=== PATIENT | female | born 1955 | race Caucasian/White ===

== ENCOUNTER → 2017-12-22 | Outpatient (CLI) | payer OTHER ==
[~2017-12-22] MED LIST: ALBU4TAB4 PO; ASPI81TA23 PO; CELE50CA PO; FENT75T TP; FLUO40CA PO; LISI40TA PO; LORA-650 PO; METH500T3 PO; MONT10TA4 PO; PERC5TAB12 PO; TOPA50TA7 PO; TOPI25TA7 PO; VYTO10TA25 PO
--- NOTE | 2017-12-22 12:41 | RADRPT ---
EXAM DATE/TIME: 12/22/2017 11:13 [facility] COMPARISON: No previous studies available for comparison. INDICATIONS : Evaluate for oneumonia, pneumothorax and communicable diseases. Pre-op exploratory lap MEDICAL HISTORY : None. SURGICAL HISTORY : None. ENCOUNTER: Initial ACUITY: 1 day PAIN SCORE: 0/10 LOCATION: chest FINDINGS: PA and lateral views of the chest demonstrate the lungs to be symmetrically aerated without evidence of mass, infiltrate or effusion. The cardiomediastinal contours are unremarkable. Mild S-shaped thoracolumbar curvature noted. CONCLUSION: No evidence of acute cardiopulmonary disease. Van Teixeira MD on December 22, 2017 at 12:38 Board Certified Radiologist. This report was verified electronically.
== END ==
LOC: CPRE 10:06
PROVIDERS: ATTEND Colon & Rectal Surgery
DX: Z01.811 Encounter for preprocedural respiratory examination (principal); Z01.812 Encounter for preprocedural laboratory examination; R19.04 Left lower quadrant abdominal swelling, mass and lump
CPT/HCPCS: 36415; 71046; 86850; 86900; 86901

== ENCOUNTER 2017-12-24 05:05 | Inpatient (IN) | payer OTHER, MEDICARE ==
[~2017-12-24] VITALS: Ht 175.3 cm; Wt 104.5 kg
[2017-12-24] VITALS (13 sets, daily range): BP systolic 115–157; BP diastolic 53–71; PULSE 57–82; RESP 17–19; TEMP 97.6–99.7; O2SAT 95–97
[~2017-12-24 05:05] MED LIST changes: -ASPI81TA23 PO; -PERC5TAB12 PO; -TOPI25TA7 PO
[2017-12-24] MEDS ORDERED: METRONIDAZOLE 500 MG/100 ML ISONTONIC SOLN IV SCH (05:45)
[2017-12-24] MEDS ORDERED: ceFAZolin 1,000 MG/NS 100 ML IV SCH ×2 (05:45)
[2017-12-24] MEDS ORDERED: LACTATED RINGER'S 1000 ML IV PRN (05:45)
[2017-12-24] MEDS ORDERED: CHLORHEXIDINE GLUCONATE 2 % 1 PACK (2 CLOTHS) TOPICAL PRN (05:45)
[2017-12-24] MEDS ORDERED: POVIDONE IODINE 5% (ANTISEPSIS KIT) 4 APPLICATIONS EACH NARE PRN (05:45)
[2017-12-24] MEDS ORDERED: METOPROLOL TARTRATE 25 MG TAB PO PRN (05:45)
[2017-12-24] MEDS ORDERED: SODIUM CHLORID 0.9% 500 ML IV PRN (05:45)
[2017-12-24] MEDS ORDERED: DEXT 5%-NACL 0.9% 1000 ML INJ 1,000 ML IV SCH (05:45)
[2017-12-24] MEDS ORDERED: TOPI25TA7 PO (06:13)
[2017-12-24] MEDS ORDERED: ASPI81TA23 PO (06:14)
--- NOTE | 2017-12-24 06:46 | PD.HP.UP ---
H&P Update Note The Pre-Admit History and Physical Examination regarding the above named patient was reviewed (including, but not limited to, vital signs, heart, lungs, co-morbid conditions), and upon re-examination it is noted that: the patient's condition has not significantly changed since the last examination. Baltazar Bermeo MD Dec 24, 2017 06:46
[2017-12-24] MEDS ORDERED: ACETAMINOPHEN 1000 MG/100 ML 100 ML IV ONE (07:15)
[2017-12-24] MEDS ORDERED: DEXMEDETOMIDINE HCL 200 MCG/2 ML VIAL ONE (07:18)
[2017-12-24] MEDS ORDERED: BUPIVACAINE HCL PF 0.5% 30 ML VIAL ONE (07:25)
[2017-12-24] MEDS ORDERED: KETAMINE HCL 500 MG/10 ML VIAL ONE (07:26)
--- NOTE | 2017-12-24 08:46 | PD.OP ---
Operative Report Date of Surgery: Dec 24, 2017 Preoperative Diagnosis: Pelvic mass Postoperative Diagnosis: Same Procedure: Cystoscopy with bilateral ureteral catheter insertion Anesthesia: LUZ Surgeon: Diego Tomlin Therapist(s): None Resident Surgeon: None Operation and Findings: 62-year-old female with findings of a large pelvic mass. Request were made for placement of bilateral ureteral catheters. The patient was brought to the operating room and placed in this dorsolithotomy position. She was prepped and draped in usual sterile fashion, received preprocedure antibiotics and general endotracheal tube anesthesia was administered. 22 Polish cystoscope was inserted in the bladder. Cystoscopy showed evidence of cystitis. No other abnormalities were identified. The left ureteral orifice was identified a 5 Polish aortic catheter was inserted into the left ureteral orifice with some difficulty. A 0.35 sensor wire was passed through the open-ended catheter to allow passage up into the kidney. The right ureteral orifice was then identified a 5 Polish open ended catheter was inserted and it slid up easily on the right side without difficulty. The Branham was then inserted and attached to the catheters. She tolerated the procedure well. Diego Tomlin DO Dec 24, 2017 08:45
[2017-12-24] MEDS ORDERED: DO NOT ADM ANY ANTICOAGULANT DRUGS PRN (10:15)
[2017-12-24] MEDS ORDERED: MIDAZOLAM HCL 2 MG/2 ML VIAL ONE (10:24)
[2017-12-24] MEDS ORDERED: POTASSIUM CHLOR 20 MEQ PREMIX 100 ML IV PRN (10:30)
[2017-12-24] MEDS ORDERED: BENZOCAINE 6 MG/MENTHOL 10 MG LOZENGE BUCCAL PRN (10:30)
[2017-12-24] MEDS ORDERED: ONDANSETRON HCL 4 MG/2 ML VIAL IV PUSH PRN (10:30)
[2017-12-24] MEDS: METOCLOPRAMIDE HCL 10 MG/2 ML VIAL IVS SCH ×2 (10:30→21:05)
[2017-12-24] MEDS ORDERED: NALOXONE HCL 0.4 MG/ML AMP IV PUSH PRN (10:30)
[2017-12-24] MEDS ORDERED: KETOROLAC TROMETHAMINE 30 MG/ML (IVP) VIAL IVP PRN (10:30)
[2017-12-24] MEDS ORDERED: ACETAMINOPHEN/HYDROcodone 325 MG/5 MG TAB PO PRN ×2 (10:30)
[2017-12-24] MEDS ORDERED: ACETAMINOPHEN 325 MG TAB PO PRN (10:30)
[2017-12-24] MEDS ORDERED: POTASSIUM CHLOR 40 MEQ PREMIX 100 ML IV PRN (10:30)
[2017-12-24] MEDS ORDERED: BUPIVACAINE HCL PF 0.5% 30 ML VIAL NB SCH (10:30)
[2017-12-24] MEDS: D5-NS + KCL 20 MEQ INJ 1,000 ML IV SCH ×3 (10:45→22:38)
[2017-12-24] MEDS: MORPHINE SULFATE 30 MG/30 ML PCA IV SCH (10:59)
[2017-12-24] MEDS ORDERED: Post-op Orders (for Pharmacy) XX ONE (11:00)
[2017-12-24] MEDS ORDERED: LIDOCAINE HCL 1% PF 5 ML SYRINGE OTHER ONE (12:00)
[2017-12-24] MEDS ORDERED: ROCURONIUM INJ 50 MG/5 ML SYRINGE IV PUSH ONE (12:00)
[2017-12-24] MEDS ORDERED: PROPOFOL 200 MG/20 ML AMP IV ONE (12:00)
[2017-12-24] MEDS ORDERED: PHENYLEPH/NS 1000 MCG/10 ML SYR IV ONE (12:00)
[2017-12-24] MEDS ORDERED: ONDANSETRON HCL 4 MG/2 ML VIAL IV PUSH ONE (12:00)
[2017-12-24] MEDS ORDERED: LACTATED RINGER'S 1000 ML INJ 2,000 ML IV ONE (12:00)
[2017-12-24] MEDS ORDERED: GLYCOPYRROLATE 1 MG/5 ML SYRINGE IV PUSH ONE (12:00)
[2017-12-24] MEDS ORDERED: ePHEDrine/NS 25 MG/5 ML SYRINGE IV ONE (12:00)
[2017-12-24] MEDS ORDERED: NEOSTIGMINE 5 MG/5 ML SYRINGE IV PUSH ONE (12:00)
[2017-12-24] MEDS ORDERED: DEXAMETHASONE SOD PHOS 4 MG/ML VIAL IV ONE (12:00)
[2017-12-24] MEDS: PCA - TOTAL MG MORPHINE DELIVERED PER SHIFT SCH ×2 (14:00→21:06)
[2017-12-24] MEDS: metroNIDAZOLE 500 MG INJ 100 ML IV SCH ×2 (16:03→23:26)
[2017-12-25] VITALS (14 sets, daily range): BP systolic 152–184; BP diastolic 60–81; PULSE 59–87; RESP 17–19; TEMP 98.8–100.3; O2SAT 95–97
[2017-12-25] MEDS: D5-NS + KCL 20 MEQ INJ 1,000 ML IV SCH ×3 (04:48→17:15)
[2017-12-25 04:56] LABS: AUTOMATED NEUTROPHIL # 11.2 TH/MM3 (1.8-7.7); BASOPHIL % 0.2 % (0.0-2.0); EOSINOPHIL % 0.1 % (0.0-4.0); HEMATOCRIT 40.7 % (35.0-46.0); HEMOGLOBIN 13.3 GM/DL (11.6-15.3); LYMPH % 13.6 % (9.0-44.0); LYMPHOCYTE # 1.9 TH/MM3 (1.0-4.8); MEAN CELL VOLUME 88.7 FL (80.0-100.0); MEAN CORPUSCULAR HEMOGLOBIN 28.9 PG (27.0-34.0); MEAN CORPUSCULAR HGB CONC 32.6 % (32.0-36.0); MEAN PLATELET VOLUME 7.6 FL (7.0-11.0); MONO % 6.8 % (0.0-8.0); NEUT % 79.3 % (16.0-70.0); PLATELET COUNT 295 TH/MM3 (150-450); RED BLOOD COUNT 4.59 MIL/MM3 (4.00-5.30); RED CELL DISTRIBUTION WIDTH 14.3 % (11.6-17.2); WHITE BLOOD COUNT 14.2 TH/MM3 (4.0-11.0)
[2017-12-25 05:17] LABS: BICARBONATE 24.5 MEQ/L (21.0-32.0); CALCIUM 7.9 MG/DL (8.5-10.1); CREATININE 1.07 MG/DL (0.50-1.00)
[2017-12-25] MEDS: PCA - TOTAL MG MORPHINE DELIVERED PER SHIFT SCH ×3 (06:00→22:00)
[2017-12-25] MEDS ORDERED: PANTOPRAZOLE SODIUM 40 MG VIAL IVP PRN (09:00)
[2017-12-25] MEDS: PANTOPRAZOLE SOD 40 MG DELAYED RELEASE TAB PO SCH (09:00)
[2017-12-25] MEDS: HEPARIN SODIUM - SQ 10,000 UNITS/ML VIAL SQ SCH ×2 (09:08→20:47)
[2017-12-25] MEDS: METOCLOPRAMIDE HCL 10 MG/2 ML VIAL IVS SCH ×2 (09:08→20:47)
[2017-12-25] MEDS: metroNIDAZOLE 500 MG INJ 100 ML IV SCH (09:08)
[2017-12-25] MEDS: fentaNYL 75 MCG/HR PATCH T-DERMAL SCH (11:38)
[2017-12-25] MEDS: REMOVE OLD DURAGESIC (FENTANYL) PATCH T-DERMAL SCH (11:39)
[2017-12-25] MEDS: MORPHINE SULFATE 30 MG/30 ML PCA IV SCH (11:43)
--- NOTE | 2017-12-25 13:05 | HHI.PR ---
Subjective . no new c/o, some pain c/w surgery. no n/v, tolerating oral intake Objective . afeb, vss a&o x 3 abd soft, incision clean & dry, s/s drain output Assessment/Plan . pod #1 doing well in early popst-op period q&a, findings, steps taken, preliminary path reviewed cpm Keyanna Lynch MD Dec 25, 2017 13:05
[2017-12-25] MEDS: LISINOPRIL 20 MG TAB PO SCH (14:42)
[2017-12-25] MEDS: ALVIMOPAN 12 MG CAPSULE PO SCH (20:45)
[2017-12-25] MEDS: ENALAPRILAT 1.25 MG/ML VIAL IV PUSH PRN (20:46)
--- NOTE | 2017-12-25 22:26 | HHI.PR ---
Subjective Remarks C/R Surg POD #1 afebrile, VSS UO good Objective - Vital Signs Date Time Temp Pulse Resp B/P (MAP) Pulse Ox O2 Delivery O2 Flow Rate FiO2 12/25/17 15:13 98.9 61 18 184/81 (115) 95 12/25/17 07:50 21 12/24/17 11:00 Nasal Cannula 2 Result Diagram: 12/25/17 0407 12/25/17 0407 Objective Remarks PE alert Abd - soft, wound dry, no tympany A/P Assessment and Plan Imp: stable post-op OOB start PO Baltazar Bermeo MD Dec 25, 2017 22:26
[2017-12-26] MEDS: D5-NS + KCL 20 MEQ INJ 1,000 ML IV SCH ×2 (02:45→11:31)
[2017-12-26] MEDS: ENALAPRILAT 1.25 MG/ML VIAL IV PUSH PRN (03:28)
[2017-12-26 03:30] VITALS: BP 188/82; PULSE 58; RESP 19; TEMP 98.4; O2SAT 97
[2017-12-26 05:43] LABS: AUTOMATED NEUTROPHIL # 10.9 TH/MM3 (1.8-7.7); BASOPHIL # 0.1 TH/MM3 (0-0.2); BASOPHIL % 0.4 % (0.0-2.0); EOSINOPHIL # 0.1 TH/MM3 (0-0.4); EOSINOPHIL % 0.4 % (0.0-4.0); HEMATOCRIT 37.1 % (35.0-46.0); HEMOGLOBIN 12.3 GM/DL (11.6-15.3); LYMPH % 12.1 % (9.0-44.0); LYMPHOCYTE # 1.6 TH/MM3 (1.0-4.8); MEAN CELL VOLUME 87.7 FL (80.0-100.0); MEAN CORPUSCULAR HEMOGLOBIN 29.1 PG (27.0-34.0); MEAN CORPUSCULAR HGB CONC 33.2 % (32.0-36.0); MEAN PLATELET VOLUME 7.4 FL (7.0-11.0); MONO % 5.5 % (0.0-8.0); MONOCYTE # 0.7 TH/MM3 (0-0.9); NEUT % 81.6 % (16.0-70.0); PLATELET COUNT 250 TH/MM3 (150-450); RED BLOOD COUNT 4.23 MIL/MM3 (4.00-5.30); RED CELL DISTRIBUTION WIDTH 14.2 % (11.6-17.2); WHITE BLOOD COUNT 13.3 TH/MM3 (4.0-11.0)
[2017-12-26] MEDS: PCA - TOTAL MG MORPHINE DELIVERED PER SHIFT SCH ×3 (06:00→22:00)
[2017-12-26 06:02] LABS: BICARBONATE 23.7 MEQ/L (21.0-32.0); CALCIUM 8.3 MG/DL (8.5-10.1); CREATININE 0.95 MG/DL (0.50-1.00)
[2017-12-26 08:00] VITALS: BP 190/85; PULSE 60; RESP 18; TEMP 100.3; O2SAT 94
[2017-12-26] MEDS: METOCLOPRAMIDE HCL 10 MG/2 ML VIAL IVS SCH ×2 (08:23→20:18)
[2017-12-26] MEDS: HEPARIN SODIUM - SQ 10,000 UNITS/ML VIAL SQ SCH ×2 (08:27→20:19)
[2017-12-26] MEDS: LISINOPRIL 20 MG TAB PO SCH (08:27)
[2017-12-26] MEDS: PANTOPRAZOLE SOD 40 MG DELAYED RELEASE TAB PO SCH (08:27)
[2017-12-26] MEDS: ALVIMOPAN 12 MG CAPSULE PO SCH ×2 (08:27→20:18)
[2017-12-26] MEDS: ENALAPRILAT 2.5 MG/2 ML VIAL IV PUSH PRN ×4 (10:26→20:31)
[2017-12-26 11:30] VITALS: BP 183/86; PULSE 84; RESP 20; TEMP 98.8; O2SAT 93
[2017-12-26] MEDS: FUROSEMIDE 20 MG/2 ML VIAL IV PUSH SCH (14:26)
[2017-12-26 15:30] VITALS: BP 197/83; PULSE 72; RESP 20; TEMP 98.7; O2SAT 96
--- NOTE | 2017-12-26 17:09 | HHI.PR ---
Subjective . c/o headache no n/v, otherwise adequate pain control Objective . Tmax 100.3, now afebrile, 58-64, 168-188/68-82, 18-19, 95% i/o 2045/2400, mary drain 225 h/h 12.3/37.1, bun/creat 6/0.95 a&o x 3, nad lungs cta with basilar rales, cv rrr abd clean, dry, s/s drain output Assessment/Plan . pod#2 doing well in post-op recovery headache, BP elevation, lasix & pain medication ordered low grade temp c/w atelectasis, increase spirometry, oob activity q&a, path pending, [facility] Keyanna Lynch MD Dec 26, 2017 17:08
[2017-12-26 19:30] VITALS: BP 194/88; PULSE 66; RESP 21; TEMP 98.9; O2SAT 95
[2017-12-26] MEDS: MORPHINE SULFATE 30 MG/30 ML PCA IV SCH (20:53)
[2017-12-26] MEDS ORDERED: TEMAZEPAM 15 MG CAP PO PRN (22:45)
[2017-12-26 23:00] VITALS: BP 185/79; PULSE 69; RESP 20; TEMP 98.7; O2SAT 94
[2017-12-26] MEDS: hydrALAZINE HCL 20 MG/ML VIAL IV PUSH PRN (23:00)
[2017-12-27 03:10] VITALS: BP 187/82; PULSE 80; RESP 20; TEMP 98.5; O2SAT 96
[2017-12-27] MEDS: FUROSEMIDE 20 MG/2 ML VIAL IV PUSH SCH (04:15)
[2017-12-27] MEDS: hydrALAZINE HCL 20 MG/ML VIAL IV PUSH PRN (04:21)
[2017-12-27] MEDS: PCA - TOTAL MG MORPHINE DELIVERED PER SHIFT SCH (06:00)
[2017-12-27 07:00] VITALS: BP 169/83; PULSE 74; RESP 18; TEMP 98.9; O2SAT 96
[2017-12-27] MEDS: PANTOPRAZOLE SOD 40 MG DELAYED RELEASE TAB PO SCH (08:34)
[2017-12-27] MEDS: HEPARIN SODIUM - SQ 10,000 UNITS/ML VIAL SQ SCH (08:35)
[2017-12-27] MEDS: LISINOPRIL 20 MG TAB PO SCH (08:35)
[2017-12-27] MEDS: ALVIMOPAN 12 MG CAPSULE PO SCH (08:35)
[2017-12-27] MEDS: METOCLOPRAMIDE HCL 10 MG/2 ML VIAL IVS SCH (08:36)
[2017-12-27] MEDS: fentaNYL 75 MCG/HR PATCH T-DERMAL SCH (09:54)
[2017-12-27] MEDS: REMOVE OLD DURAGESIC (FENTANYL) PATCH T-DERMAL SCH (09:55)
[2017-12-27] MEDS ORDERED: PERC5TAB12 PO (10:00)
--- NOTE | 2017-12-27 10:07 | HHI.FF ---
Face to Face Verification Diagnosis: (1) Endometrial adenocarcinoma Physical Therapy Order: Evaluate and Treat, Improve ambulation, Strength and gait training Home Health Nursing Order: Medical education Signs/symptoms of disease process Wound care and dressing changes I have seen patient Gabbie Bowers on 12/27/17. My clinical findings support the need for the requested home health care services because: Ltd mobility - disease progression Deconditioned w/ increased weakness Infection w/ risk of complications I certify that my clinical findings support that this patient is homebound because: Post-op weakness Unsafe to leave home unassisted Baltazar Bermeo MD Dec 27, 2017 10:07
--- NOTE | 2017-12-27 10:52 | HHI.PR ---
Subjective Remarks C/R Surg POD #3 afebrile, VSS UO good +stool Objective - Vital Signs Date Time Temp Pulse Resp B/P (MAP) Pulse Ox O2 Delivery O2 Flow Rate FiO2 12/27/17 06:00 19 12/27/17 03:10 98.5 80 187/82 (117) 96 12/25/17 21:20 21 12/24/17 11:00 Nasal Cannula 2 Result Diagram: 12/26/17 0520 12/26/17 0520 Objective Remarks PE alert Abd - soft, wound dry, no tympany, drain mod A/P Assessment and Plan Imp: OOB start PO, adv DC IVF dc plans path reviewed Baltazar Bermeo MD Dec 27, 2017 10:52
[2017-12-27 11:00] VITALS: BP 160/78; PULSE 78; RESP 18; TEMP 98.4; O2SAT 97
[2017-12-27] MEDS ORDERED: METOCLOPRAMIDE HCL 10 MG/2 ML VIAL IVS PRN (11:00)
[2017-12-27] MEDS ORDERED: FLUoxetine HCL 20 MG CAP PO ONE (13:00)
--- NOTE | 2017-12-31 12:08 | MP ---
cc: Baltazar Bermeo MD,Keyanna Hollins MD DATE OF OPERATION: 12/24/2017 DATE OF PROCEDURE: 12/24/2017 PREOPERATIVE DIAGNOSES: 1. Pelvic mass. 2. History of endometriosis. PROCEDURE: 1. Exploratory laparotomy with excision of large retroperitoneal mass. 2. Sigmoidoscopy. POSTOPERATIVE DIAGNOSES: 1. Large retroperitoneal cystic mass. 2. History of endometriosis. SURGEON: Dr. Bermeo. CAR HOPPER: Dr. Keyanna Lynch PROCEDURE: The patient was placed in the supine position. After adequate general anesthesia, her legs were placed in universal stirrups and supported appropriately. The abdomen and perineum were then prepped with Betadine solution, draped in the usual sterile fashion. With Dr. Lynch' assistance, the abdomen was opened through a midline incision. Exploration revealed a very large cystic mass underneath the sigmoid mesentery displacing the sigmoid colon anteriorly and over to the right side. The mass did appear to be mostly retroperitoneal. The uterus and ovaries had been previously removed. The sigmoid colon, other than being stretched over the mass, appeared to be relatively normal. The proximal colon was palpated and felt to be pretty unremarkable. The small bowel was run from ligament of Treitz down to the ileocecal valve and no abnormalities were noted. The liver was normal. The stomach and duodenum were unremarkable. The great vessels were of normal caliber and fairly soft. First, the sigmoid colon was mobilized medially by dividing along the white line of Toldt. The left ureteral stent was eventually palpated and the ureter preserved along its entire course as was the right ureter. Dissection then proceeded up to the left gutter, freeing the left colon off the retroperitoneum. The cecum was elevated up out of the pelvis and the right retroperitoneal space opened. After reflecting the sigmoid off the mass, the tedious dissection was undertaken to free the mass anteriorly and then to the retroperitoneum, taking the ureter off the mass as well as the remaining remnant ovarian vessels. The mass was fairly tightly adherent to the iliac vessels and these attachments were also sharply divided. As the dissection proceeded down into the pelvis, the presacral space was opened and the rectum mobilized up out of the pelvis. The mass appeared to have more attachments to the cul-de-sac area and a plane was developed between the rectum and the cul-de-sac eventually dividing the attachments in the cul-de-sac region with a sponge stick in the vagina for identification of the vaginal apex. After complete excision of the mass was sent off and pathological evaluation revealed serous neoplasm borderline tumor. The abdomen was irrigated copiously. Hemostasis achieved at all sites. Dr. Lynch inserted the sigmoidoscope and insufflation confirmed no leaks in the sigmoid colon. The mesentery of the sigmoid colon had not been taken and the bowel did appear viable. There was somewhat of a redundant sigmoid loop. A Andrey-Benites drain was placed down into the presacral space and brought up through a stab wound in the right lower quadrant, secured to the skin with a nylon suture. The omentum was evaluated and felt to be pretty unremarkable. No significant adenopathy was noted in the retroperitoneum. The midline incision was then closed anatomically using a running #1 PDS suture to reapproximate the midline fascia. The subcutaneous tissues were irrigated copiously and the skin closed with a running subcuticular Vicryl suture. The wound area was washed with normal saline and dried, sterile dressing of Telfa and gauze applied. The patient tolerated the procedure quite well and was brought to the recovery room in stable condition. Sponge and needle counts were correct at the end of the procedure. MD RAHEEM Herrera/SB , 11:34 AM , 12:07 PM
--- NOTE | 2018-01-02 08:33 | MP ---
cc: Keyanna Lynch MD,Baltazar Beck MD DATE OF OPERATION: 12/24/2017 PREOPERATIVE DIAGNOSIS: 1. Pelvic mass. 2. History of endometriosis. 3. Status post prior hysterectomy, bilateral salpingo-oophorectomy. POSTOPERATIVE DIAGNOSIS: 1. Pelvic mass. 2. History of endometriosis. 3. Status post prior hysterectomy, bilateral salpingo-oophorectomy. PROCEDURE PERFORMED: 1. Exploratory laparotomy with excision of large retroperitoneal mass. 2. Sigmoidoscopy. ANESTHESIA: Baltazar Bermeo MD. R PROGRAMMER: Keyanna Lynch MD. HISTORY: This is a 62-year-old female who, by history, had severe endometriosis, had a hysterectomy and bilateral salpingo-oophorectomy; however, was found on exam and imaging to have a large pelvic mass fixed in position that had been causing symptoms and increasing in size. She was counseled regarding recommendations for surgical removal. She was seen and evaluated initially by Dr. Baltazar Bermeo. Dr. Bermeo asked me to see her in consultation. She was seen in our office where she was further counseled and she agreed to move forward with surgery and the surgical schedule was coordinated between Dr. Bermeo and myself. Given the extensive overlying bowel component and compression on the bowel, the surgery was directed by Dr. Baltazar Bermeo. I acted as a administrative assistant front desk as there are no resident physicians available, but I had Dr. Baltazar Bermeo direct this surgery. I was scrubbed from start to finish on this procedure. The steps taken and the findings are as outlined and summarized in the op note by Dr. Bermeo. Please see his surgical note for details. I stayed scrubbed from the beginning of the case until after the fascia was closed. Keyanna Lynch MD KLM/KIA , 08:13 AM , 08:31 AM
--- NOTE | 2018-01-06 16:02 | PQ ---
Physician Query Response Document PATIENT: MARVA MORENO : 1955 ADMIT DATE: 12/24/2017 5:05 AM DISCH DATE: 12/27/2017 2:20 PM RESPONDING PROVIDER #: AHRitter QUERY TEXT: Clarification of Clinical Diagnostic Findings Please clarify documentation or clinical relevance for the clinical / diagnostic findings or whether those are insignificant or unable to be further specified. ___Serous Carcinoma Retroperitoneum ___Retroperitoneal Mass ___Undetermined ___Unknown ___Other The patient's Clinical Indicators include: Patient admitted with pelvic mass. Pathology report shows: RG/guanako FINAL DIAGNOSIS: #1- PELVIC MASS, EXCISIONAL BIOPSY: - SEROUS BORDERLINE TUMOR (SEE COMMENT). #2- RETROPERITONEAL MASS, RESECTION: - SEROUS CARCINOMA ARISING IN THE BACKGROUND OF SEROUS BORDERLINE TUMOR AND ASSOCIATED ENDOMETRIOSIS. - SEE COMMENT AND TUMOR SUMMARY. Please call ext. [phone] if any questions, coments or concerns. Query created by: Marcelina Gregorio on 01/01/2018 8:14 AM RESPONSE TEXT: Provider disagreed with this CDI query. Electronically signed by: Baltazar Bermeo MD 01/06/2018 3:58 PM
== END 2017-12-27 14:20 | disposition home health service (06) | DRG 357 ==
LOC: HSDI 05:05 → EDSTATUS 07:30 → HCPC 11:13
PROVIDERS: ADMIT Colon & Rectal Surgery; ATTEND Colon & Rectal Surgery
PROC: 0T788DZ Dilation of Bilateral Ureters with Intraluminal Device, Via Natural or Artificial Opening Endoscopic (ICD-10-PCS; 2017-12-24)
PROC: 0WBH0ZZ Excision of Retroperitoneum, Open Approach (ICD-10-PCS; principal; 2017-12-24 07:34)
PROC: 0DJD8ZZ Inspection of Lower Intestinal Tract, Via Natural or Artificial Opening Endoscopic (ICD-10-PCS; 2017-12-24 07:34)
DX: R19.04 Left lower quadrant abdominal swelling, mass and lump (principal); J98.11 Atelectasis; N30.90 Cystitis, unspecified without hematuria; I10 Essential (primary) hypertension; J45.909 Unspecified asthma, uncomplicated; E11.9 Type 2 diabetes mellitus without complications; G47.30 Sleep apnea, unspecified; R51 Headache; Z96.653 Presence of artificial knee joint, bilateral; Z79.84 Long term (current) use of oral hypoglycemic drugs; Z79.82 Long term (current) use of aspirin; Z85.820 Personal history of malignant melanoma of skin; Z90.710 Acquired absence of both cervix and uterus
CPT/HCPCS: 36415; 71046; 76937; 80048; 85025; 86850; 86900; 86901; 88305; 88331; 88341; 88342; 94150; C1769; C9113; J0131; J0360; J0690; J1100; J1644; J1885; J1940; J2250; J2270; J2370; J2405; J2710; J2765; J3480; J7120

== ENCOUNTER 2018-01-30 06:14 | Day surgery (SDC) | payer OTHER ==
[~2018-01-30] VITALS: Ht 175.3 cm; Wt 95.9 kg
[~2018-01-30 06:14] MED LIST changes: +ASPI81TA23 PO; +PERC5TAB12 PO; -TOPA50TA7 PO; +TOPI25TA7 PO
[2018-01-30] MEDS ORDERED: CHLORHEXIDINE GLUCONATE 2 % 1 PACK (2 CLOTHS) TOPICAL SCH (07:30)
[2018-01-30] MEDS ORDERED: SODIUM CHLORIDE 0.9% 1000 ML IV SCH (07:30)
[2018-01-30] MEDS ORDERED: POVIDONE IODINE 5% (ANTISEPSIS KIT) 4 APPLICATIONS EACH NARE SCH (07:30)
[2018-01-30 07:31] VITALS: BP 144/79; PULSE 55; RESP 19; TEMP 99; O2SAT 96
[2018-01-30] MEDS ORDERED: EZET10 PO (07:41)
[2018-01-30 07:52] LABS: PROTHROMBIN TIME - PATIENT 10.3 SEC (9.8-11.6)
[2018-01-30] MEDS ORDERED: MIDAZOLAM HCL 5 MG/5 ML VIAL ONE (08:00)
[2018-01-30] MEDS ORDERED: fentaNYL CITRATE 250 MCG/5 ML AMP ONE (08:00)
[2018-01-30] MEDS: VANCOMYCIN 1000 MG/NS 250 ML - implanted port/tunneled catheter IV SCH ×4 (08:11→10:36)
[2018-01-30] MEDS: ceFAZolin 2 GM PREMIX 50 ML - implanted port/tunneled catheter insertion IV SCH ×2 (08:11→10:36)
[2018-01-30] MEDS ORDERED: LIDOCAINE 1%/EPINEPHrine 1:100,000 SOLN 20 ML VIAL ONE (08:13)
[2018-01-30] MEDS ORDERED: HYDROmorphone HCL PF 2 MG/ML VIAL ONE (08:34)
--- NOTE | 2018-01-30 09:09 | PD.RAD ---
Post Procedure Progress Note Pre Procedure Diagnosis: (1) Endometrial adenocarcinoma Post Procedure Diagnosis: (1) Endometrial adenocarcinoma Procedure Date: January 30, 2018 Supervising Radiologist: Jonny Duke Proceduralist/Assist: Petra Diane, RT(R)(CV), Howie Wheeler RT(R) Anesthesia: Local, Analgesia, Conscious Sedation Plan of Activity Patient to Unit: ROPU Patient Condition: Good See PACS Report for procedural detail/treatment Central Venous Access Device Procedure 1 Right Internal Jugular Infusaport Placement single lumen Amharic: 8 Jonny Duke MD January 30, 2018 09:09
[2018-01-30 09:15] VITALS: BP 155/79; PULSE 57; RESP 18; TEMP 97.5; O2SAT 99
[2018-01-30] MEDS ORDERED: SODIUM CHLORIDE 0.9% FLUSH 10 ML FLUSH IVF PRN (09:15)
[2018-01-30 09:30] VITALS: BP 160/70; PULSE 58; RESP 19; O2SAT 97
[2018-01-30 10:00] VITALS: BP 150/81; PULSE 57; RESP 18; O2SAT 95
[2018-01-30 10:30] VITALS: BP 157/83; PULSE 59; RESP 20; O2SAT 98
--- NOTE | 2018-01-30 13:50 | RADRPT ---
EXAM DATE/TIME: 01/30/2018 07:58 [facility] COMPARISON: No previous studies available for comparison. INDICATIONS : Patient with endometrial cancer. needs port for chemotherapy. MEDICAL HISTORY : 1. pad 2. HYPERCHOLESTEROLEMIA 3. htn 4. Asthma 5. melanoma SURGICAL HISTORY : 1. bilateral knee replacment 2.tonsillectomy 3. cholecystectomy 4. hysterectomy ENCOUNTER: Initial ACUITY: 1 month PAIN SCORE: 0/10 FLUORO TIME: 1.2 minutes IMAGE SERIES: 1 SEDATION TIME: 45 minutes ACCESS: Right internal jugular vein SEDATION: 1.) 5 mg midazolam (Versed) IV 2.) 2 mg hydromorphone (Dilaudid) IV 3.) 250mcg fentanyl (Sublimaze) IV Prophylactic antibiotics were administered with appropriate pre-procedure timing. Vancomycin within 2 hours of procedure, Ancef (or alternative) within 1 hour of procedure. DEVICE: 1. 8 Dominican single lumen XCELA PLUS PORT PROCEDURE : 1. Continuous pulse oximetry and EKG monitoring. 2. Intravenous conscious sedation. 3. Ultrasound guidance for venous access. 4. Fluoroscopic guided implantable central venous port placement. The patient was placed supine. The neck was prepped in sterile fashion. Full sterile technique was u sed, including cap, mask, sterile gloves and gown, and a large sterile sheet. Hand hygiene and 2% ch lorhexidine Betadine was utilized per protocol for cutaneous antisepsis with appropriate dry time for site. Sterile gel and sterile probe cover were utilized for ultrasound guidance. The skin and sub cutaneous tissues were infiltrated with local anesthetic solution. Under direct ultrasound guidance, central venous access was accomplished in the targeted vessel. The ultrasound images depicting access guidance were stored and saved to PACS for permanent record. A s ubcutaneous pocket was created using blunt dissection. The port was introduced to the pocket. The c atheter tubing was fed through a subcutaneous tunnel to the venotomy site. The catheter tubing was c ut to a suitable length and then was introduced through a valved Peel-Away sheath and positioned with catheter tubing tip at the cavo-atrial junction level. The pocket incision was closed with subcutic ular Vicryl suture. Steri-Strips were applied. The port was flushed and locked with heparin solutio n per protocol. Sterile dressing was applied to the site. The patient tolerated the procedure well. Conscious sedation was performed with the prescribed dosages and duration as above in the presence of an independent trained radiology nurse to assist in the monitoring of the patient. EKG and oximetry remained stable throughout the procedure. The patient tolerated the procedure well and there were no complications. The patient was sent to post anesthesia recovery in stable condition. CONCLUSION: Uncomplicated ultrasound and fluoroscopic guided implanted central venous port catheter placement as described in detail above. An 8 Dominican Power port was placed. Jonny Duke MD on January 30, 2018 at 13:47 Board Certified Radiologist. This report was verified electronically.
== END 2018-01-30 11:02 | disposition home or self-care (01) ==
LOC: HROP 06:14 → HRIP 06:15 → HROP 11:02
PROVIDERS: ATTEND Obstetrics & Gynecology Gynecologic Oncology
DX: Z45.2 Encounter for adjustment and management of vascular access device (principal); C54.1 Malignant neoplasm of endometrium; I10 Essential (primary) hypertension; I73.9 Peripheral vascular disease, unspecified; E78.00 Pure hypercholesterolemia, unspecified; J45.909 Unspecified asthma, uncomplicated; Z85.820 Personal history of malignant melanoma of skin; Z90.710 Acquired absence of both cervix and uterus; Z90.49 Acquired absence of other specified parts of digestive tract
CPT/HCPCS: 36561; 76937; 77001; 85610; 99152; 99153; C1788; J0690; J1170; J1642; J2250; J3010; J3370; J7030; J7050

== ENCOUNTER 2018-04-10 14:16 | Inpatient (IN) ==
[2018-04-10] MEDS ORDERED: Sod Chloride 0.9% Inj 1,000 ML IV.SIG ONE (14:49)
--- NOTE | 2018-04-10 14:56 | ED ---
HPI General Chief complaint: Extremity Problem,Nontraumatic Stated complaint: Edema Time Seen by Provider: 04/10/18 14:30 Source: patient Mode of arrival: ambulatory Limitations: no limitations History of Present Illness HPI narrative: 63-year-old female with a history of ovarian cancer presents emergency department complaining of right lower extremity swelling and pain with exertion that started 2 days ago. Says she that she also has had associated increased shortness of breath with exertion since the onset of her pain in her right lower extremity. Patient points to the anterior thigh of the right lower extremity as to where the most of her pain is. Says currently she has no pain unless walking. Says the pain is mild to moderate, nonradiating and sharp and dull in nature. Says she was advised to come to the emergency department by primary care physician to rule out DVT. Patient states that she has been on been on Neulasta for 2 weeks. She has had shortness of breath for the last several weeks but again, the SOB is worse over the last 2 days. The shortness of breath resolves within 2-3 minutes of rest. She denies fevers or chills. Denies chest pain, abdominal pain. She denies inciting event such as trauma to the lower extremities. Relieving factors: rest Exacerbating factors: movement Associated symptoms: shortness of breath Treatments prior to arrival: none Related Data Home Medications Medication Instructions Recorded Confirmed celecoxib [Celebrex] 200 mg PO DAILY 04/10/18 04/10/18 fentanyl 1 patch TRANSDERMAL Q72H 04/10/18 04/10/18 fluoxetine 40 mg PO DAILY 04/10/18 04/10/18 lisinopril 40 mg PO DAILY 04/10/18 04/10/18 loratadine 10 mg PO DAILY 04/10/18 04/10/18 montelukast 10 mg PO QPM 04/10/18 04/10/18 ondansetron HCl 4 mg PO DAILY PRN 04/10/18 04/10/18 topiramate [Topamax] 15 mg PO DAILY 04/10/18 04/10/18 Allergies Allergy/AdvReac Type Severity Reaction Status Date / Time Sulfa (Sulfonamide Allergy Severe Swelling Verified 04/10/18 14:22 Antibiotics) Review of Systems Except as stated in HPI: all other systems reviewed are negative [facility] Medical History Medical History Anxiety (Acute) Asthma (Acute) Endometrial cancer (Acute) HBP (high blood pressure) (Acute) History of hysterectomy (Acute) Melanoma (Acute) Surgical History Surgical History History of back surgery (Acute) History of knee replacement (Acute) Hx of cholecystectomy (Acute) Hx of tonsillectomy (Acute) Social History Social History Substance History: No History of Abuse Second Hand Smoke Exposure: No Smoking Status: Never smoker How Often Do You Have a Drink Containing Alcohol: Monthly or less Recent Travel in [facility] within the Last 8 Weeks: No Immunization History Tetanus Immunization: >5 Years Hx Influenza Vaccine This Season: Yes Exam Narrative Exam Narrative: GENERAL: Well developed, well-nourished in no apparent distress , resting comfortably in bed SKIN: Focused skin assessment warm/dry. HEAD: Atraumatic. Normocephalic. EYES: Pupils equal and round. No scleral icterus. No injection or drainage. ENT: No nasal bleeding or discharge. Mucous membranes pink and moist. NECK: Trachea midline. No JVD. No lymphadenopathy CARDIOVASCULAR: Regular rate and rhythm. No murmur appreciated. RESPIRATORY: No accessory muscle use. Clear to auscultation. Breath sounds equal bilaterally. GASTROINTESTINAL: Abdomen soft, non-tender, nondistended. Hepatic and splenic margins not palpable. MUSCULOSKELETAL: No obvious deformities. No clubbing. No cyanosis. Right lower extremity from proximal knee to foot with erythema, skin intact, tenderness palpation. Bilateral lower extremities status post TKA NEUROLOGICAL: Awake and alert. No obvious cranial nerve deficits. Motor grossly within normal limits. Normal speech. PSYCHIATRIC: Appropriate mood and affect; insight and judgment normal. Course Initial Documented Vital Signs Temperature 98.1 F 04/10/18 14:28 Pulse Rate 93 H 04/10/18 14:28 Respiratory Rate 16 04/10/18 14:28 Blood Pressure 106/61 04/10/18 14:28 Pulse Oximetry 98 04/10/18 14:28 Last Documented Vital Signs Temperature 97.9 F 04/10/18 19:00 Pulse Rate 81 04/10/18 19:00 Respiratory Rate 18 04/10/18 19:00 Blood Pressure 102/65 04/10/18 19:00 Pulse Oximetry 98 04/10/18 18:00 Medical Decision Making MICHAEL Attestation MICHAEL supervised visit: Yes Attestation: I, Dr. Sanders, have reviewed the advance practice practitioner's documentation and am in agreement, met with the patient face to face, made the diagnosis, and the medical decision making was done by me. *My assessment and Findings: Patient presents with right leg swelling and pain. Patient has difficulty ambulating. Patient also is feeling weak. Patient does have a history of cancer. Ultrasound of the lower extremities shows evidence of a DVT. She is also with elevated BUN and creatinine. She will be admitted to the hospital. She will be given IV hydration. MDM Narrative Medical decision making narrative: 63y female presents with right lower extremity swelling, erythema and pain. She has a history of adenocarcinoma and was treated by Dr. Lynch and Dr. Bermeo. Patient is currently receiving chemo. She called her nurse today and recommended she come in to the emergency department for evaluation. PMHx: Anxiety Asthma DM II HTN Peripheral neuropathy s/p Hysterectomy 17yrs ago After review the EMR, it appears that patient was evaluated by Dr. Lynch April 03. She was diagnosed with "adenocarcinoma arising from possible ovarian remnant versus endometriosis" and had surgery for excision (12/24/2017) with follow up chemotherapy. I had an extensive discussion of Coumadin versus Xarelto therapy for her DVT. She states that she would like to be in the hospital as she gets blood work done every week by her oncologist. That this would not be a burden. She says that she would have also had trouble performing her ADLs at home because of the pain with walking. I had like to admit this patient for an extensive DVT, acute kidney injury, and hypotension. I discussed this case with Dr. Stringer who agreed to the admission. Differential Diagnosis Differential Diagnosis: PE, DVT, dehydration Lab Data Result diagrams: 04/10/18 14:45 04/10/18 14:45 Lab Results 04/10/18 04/10/18 04/10/18 Range/Units 14:45 14:45 14:45 WBC 18.7 H (4.0-11.0) th/mm3 RBC 4.31 (4.00-5.30) mil/mm3 Hgb 12.6 (11.6-15.3) gm/dL Hct 38.9 (35.0-46.0) % MCV 90.2 (80.0-100.0) fL MCH 29.2 (27.0-34.0) pg MCHC 32.4 (32.0-36.0) % RDW 20.8 H (11.6-17.2) % Plt Count 104 L (150-450) th/mm3 MPV 8.1 (7.0-11.0) fL Neut % (Auto) 88.9 H (16.0-70.0) % Lymph % (Auto) 7.1 L (9.0-44.0) % Alexander % (Auto) 3.8 (0.0-8.0) % Eos % (Auto) 0.1 (0.0-4.0) % Baso % (Auto) 0.1 (0.0-2.0) % Neut # (Auto) 16.6 H (1.8-7.7) th/mm3 Lymph # (Auto) 1.3 (1.0-4.8) th/mm3 Alexander # (Auto) 0.7 (0.0-0.9) th/mm3 Eos # (Auto) 0.0 (0.0-0.4) th/mm3 Baso # (Auto) 0.0 (0.0-0.2) th/mm3 WBC Differential . Differential Comment Auto diff final PT 10.4 (9.8-11.6) sec INR 1.0 Ratio APTT 22.5 L (24.3-30.1) sec Sodium 139 (136-145) meq/L Potassium 4.3 (3.5-5.1) meq/L Chloride 107 (98-107) meq/L Carbon Dioxide 22.1 (21.0-32.0) meq/L Anion Gap 10 (5-15) meq/L BUN 22 H (7-18) mg/dL Creatinine 1.38 H (0.50-1.00) mg/dL Estimated GFR 38 L (>89) mL/min Random Glucose 109 H (74-106) mg/dL Calcium 9.1 (8.5-10.1) mg/dL Total Bilirubin 0.3 (0.2-1.0) mg/dL AST 8 L (15-37) U/L ALT 17 (10-53) U/L Alkaline Phosphatase 110 (45-117) U/L Total Protein 7.2 (6.4-8.2) g/dL Albumin 3.9 (3.4-5.0) g/dL Imaging Data Radiologist's impression: Chest X-Ray 04/10/18 14:49 CONCLUSION: No acute cardiopulmonary abnormality is identified. Venous Doppler Study 04/10/18 15:20 CONCLUSION: 1. Extensive DVT. Chest CTA 04/10/18 15:56 CONCLUSION: Unremarkable study except for mild scoliosis . Discharge Plan Discharge Disposition Patient Disposition: 30 Still Patient Discharge Condition Condition: Stable Discharge Details Diagnosis: KRISTY (acute kidney injury), Hypotension, DVT (deep venous thrombosis) Physicians Team ED Provider: Laith Sanders ED Midlevel Provider: Babs Boss Primary Care Provider: Nathan Sabillon Attending Provider: Grisel Hawley Status ED Status: Admitted Patient
[2018-04-10 15:15] LABS: Baso % (Auto) 0.1 % (0.0-2.0); Eos % (Auto) 0.1 % (0.0-4.0); Hematocrit 38.9 % (35.0-46.0); Hemoglobin 12.6 gm/dL (11.6-15.3); Lymph # (Auto) 1.3 th/mm3 (1.0-4.8); Lymph % (Auto) 7.1 % (9.0-44.0); Mean Corpuscular HGB Conc 32.4 % (32.0-36.0); Mean Corpuscular Hemoglobin 29.2 pg (27.0-34.0); Mean Corpuscular Volume 90.2 fL (80.0-100.0); Mean Platelet Volume 8.1 fL (7.0-11.0); Mono # (Auto) 0.7 th/mm3 (0.0-0.9); Mono % (Auto) 3.8 % (0.0-8.0); Neut # (Auto) 16.6 th/mm3 (1.8-7.7); Neut % (Auto) 88.9 % (16.0-70.0); Platelet Count 104 th/mm3 (150-450); Red Blood Count 4.31 mil/mm3 (4.00-5.30); Red Cell Distribution Width 20.8 % (11.6-17.2); White Blood Count 18.7 th/mm3 (4.0-11.0)
[2018-04-10 15:24] LABS: Activated Partial Thrombo Time 22.5 sec (24.3-30.1); Prothrombin Time 10.4 sec (9.8-11.6)
--- NOTE | 2018-04-10 15:30 | XR ---
EXAM DATE: 04/10/2018 3:03 PM EDT AGE/SEX: 63 years / Female INDICATIONS: Short of breath. Edema. CLINICAL DATA: This is the patient's initial encounter. Patient reports that signs and symptoms have been present for 1 day and indicates a pain score of 2/10. MEDICAL/SURGICAL HISTORY: . endometriosis carcinoma . Infusa-port COMPAR[place]: [facility] [place], 12[place]22[place]. . FINDINGS: Portable AP view of the chest demonstrates a normal-sized cardiac silhouette. Right chest wall Infuse -a-Port is present with distal tip in the superior vena cava. No pleural effusion, airspace consolida tion, or pneumothorax is identified. Bones and soft tissues demonstrate no acute finding. CONCLUSION: No acute cardiopulmonary abnormality is identified. Electronically signed by: Van Quarles MD 04/10/2018 3:29 PM EDT
[2018-04-10 15:36] LABS: Alanine Aminotransferase 17 U/L (10-53); Albumin 3.9 g/dL (3.4-5.0); Anion Gap 10 meq/L (5-15); Aspartate Aminotransferase 8 U/L (15-37); Blood Urea Nitrogen 22 mg/dL (7-18); Calcium 9.1 mg/dL (8.5-10.1); Carbon Dioxide 22.1 meq/L (21.0-32.0); Chloride 107 meq/L (98-107); Glomerular Filtration Rate 38 mL/min (>89); Glucose,Random 109 mg/dL (74-106); Potassium 4.3 meq/L (3.5-5.1); Sodium 139 meq/L (136-145)
[2018-04-10 15:39] LABS: Alkaline Phosphatase 110 U/L (45-117); Total Protein 7.2 g/dL (6.4-8.2)
--- NOTE | 2018-04-10 15:47 | US ---
EXAM DATE: 04/10/2018 3:41 PM EDT AGE/SEX: 63 years / Female INDICATIONS: Right leg swelling. CLINICAL DATA: This is the patient's initial encounter. Patient reports that signs and symptoms have been present for 1 week and indicates a pain score of 3/10. MEDICAL/SURGICAL HISTORY: . Anxiety. Asthma. Endometrial cancer. High blood pressure. Melanoma. Hysterectomy. Cholecystectomy. Tonsillectomy. Back surgery. Knee replacement. COMPARISON: No prior exams available for comparison. TECHNIQUE: Venous ultrasound of both lower extremities was performed from the inguinal ligament to t he proximal calf. Real-time, color Doppler and spectral tracing, compression and augmentation techni ques were used. FINDINGS: There is extensive DVT extending from iliac vein down to the common femoral vein, femoral vein and popliteal vein and below the knee vessels CONCLUSION: 1. Extensive DVT. Electronically signed by: Jena Goncalves MD 04/10/2018 3:46 PM EDT
--- NOTE | 2018-04-10 17:00 | CT ---
EXAM DATE: 04/10/2018 4:53 PM EDT AGE/SEX: 63 years / Female INDICATIONS: Shortness of breath and bilateral leg swelling today. CLINICAL DATA: This is the patient's initial encounter. Patient reports that signs and symptoms have been present for 1 day and indicates a pain score of 0/10. MEDICAL/SURGICAL HISTORY: Carcinoma, skin cancer. Hypertension. endometrial cancer Hysterectomy. Cholecystectomy. RADIATION DOSE: 22.63 CTDI (mGy) ; Patient body habitus COMPARISON: [facility], CHEST 1V SINGLE AP, 04/10/2018. . TECHNIQUE: Volumetric scanning was performed using a multi-row detector CT scanner during bolus infu ina of 50 ml Visipaque 320 (iodixanol) nonionic water-soluble contrast as a single exam dose. The d terry was post processed with a variety of visualization algorithms including full volume maximum inten sity projection and sliding thin slab reformation. Using automated exposure control and adjustment o f the mA and/or kV according to patient size, radiation dose was kept as low as reasonably achievable to obtain optimal diagnostic quality images. DICOM format image data is available electronically fo r review and comparison. FINDINGS: The lungs are clear without infiltrate, nodule, or mass. There is no pleural effusion. No appreciab le pathological adenopathy is seen within the mediastinum. There is no evidence of PE for technique. There is slight thoracic scoliosis convexity towards the right. CONCLUSION: Unremarkable study except for mild scoliosis . Electronically signed by: Jena Goncalves MD 04/10/2018 4:59 PM EDT
[2018-04-10] MEDS ORDERED: Acetaminophen 325 MG Tablet PO PRN (18:56)
[2018-04-10] MEDS ORDERED: Temazepam 15 MG Capsule PO PRN (18:56)
[2018-04-10] MEDS ORDERED: Bisacodyl 10 MG Supp RECTAL PRN (18:56)
[2018-04-10] MEDS ORDERED: Heparin 10,000 UNITS/10 ML Vial (for IV use) IV.PUSH STA (18:59)
--- NOTE | 2018-04-10 19:04 | P.HPIM ---
History of Present Illness Primary Care Physician: Nathan Sabillon History of Present Illness: This is a 63-year-old female with a PMH of HTN, Ovarian CA and Chronic Pain was referred to the ER by her Oncologist, Dr. Burch for right lower extremity swelling. Pt notes RLE edema x2 days w/ associated tenderness. Pain is intermittent, moderate, 6/10, worse w/ ambulation/weight. No previous h/o DVT. Does note she fell approx 2 days ago and thinks this may be the cause. No head trauma or LOC reported. On arrival, BP 106/61, HR 93, O2 sat 98% on RA, Afebrile. WBC 18.7. INR 1.0. Creatinine 1.38, previously 0.95 on 12/26/2017. RLE Doppler with extensive DVT. CTA Pulmonary negative for PE. Currently on Heparin gtt. - Diagnosis (1) DVT (deep venous thrombosis) (2) KRISTY (acute kidney injury) (3) Ovarian ca (4) Leukocytosis Inpatient Certification: I certify that the inpatient services were ordered in accordance with Medicare regulations governing the order. This includes certification that hospital inpatient services are reasonable and necessary and in the case of services not specified as inpatient-only under 42 CFR 419.22(n), that they are appropriately provided as inpatient services in accordance to with the 2-midnight benchmark under 43 CFR 412.3(e) Estimated Total Length of Stay (Days): 2 Plans for Post Hospital Care: Home health Review of Systems All other systems reviewed negative except as stated in HPI PMFSH - History History Provided By: Patient - Medical History Medical History: Medical History (Last Updated 04/10/18 @ 14:56 by Yu Christy) Anxiety Asthma Endometrial cancer HBP (high blood pressure) History of hysterectomy Melanoma - Surgical History Surgical History: Surgical History (Last Updated 04/10/18 @ 14:31 by Yu Christy) History of back surgery History of knee replacement Hx of cholecystectomy Hx of tonsillectomy - Tobacco History Second Hand Smoke Exposure: No Tobacco Use In Past 30 Days: No Smoking Status: Never smoker - Alcohol History How Often Do You Have a Drink Containing Alcohol: Monthly or less - Substance Use History Substance History: No History of Abuse - Travel History Recent Travel in the [facility] Within the Last 8 Weeks: No - Immunization History Tetanus Immunization: >5 Years Hx Influenza Vaccine This Season: Yes Medications and Allergies Active Medications: Active Medications Acetaminophen (Tylenol) 650 mg PO Q4H PRN PRN Reason: Temp > 100.4 Al Hydroxide/Mg Hydroxide (Milk Of Magnesia Liq) 30 ml PO Q12H PRN PRN Reason: Mild Constipation Bisacodyl (Dulcolax Supp) 10 mg RECTAL DAILY PRN PRN Reason: SEVERE CONSITIPATION Heparin Sodium (Porcine) (Heparin Inj) 8,000 units 80 units/kg (8000 units) IV.PUSH NOW STA Stop: 04/10/18 19:00 Heparin Sodium/Dextrose (Heparin/D5w 25,000 U/250 Ml) 25,000 unit in 250 mls @ 0 mls/hr IV.CONT TITRATE PRN; Protocol PRN Reason: Per Protocol Lactulose (Lactulose Liq) 30 ml PO DAILY PRN PRN Reason: SEVERE CONSITIPATION Oxycodone HCl (Roxicodone) 5 mg PO Q4H PRN PRN Reason: pain 3-10 Senna/Docusate Sodium (Kavita-Colace) 1 tab PO BID [facility] Sennosides (Senokot) 17.2 mg PO Q12H PRN PRN Reason: Moderate Constipation Temazepam (Restoril) 15 mg PO HS PRN PRN Reason: INSOMNIA Warfarin Sodium (Coumadin) 5 mg PO DAILY@1600 MAGI Allergies Allergy/AdvReac Type Severity Reaction Status Date / Time Sulfa (Sulfonamide Allergy Severe Swelling Verified 04/10/18 14:22 Antibiotics) Home Medications Medication Instructions Recorded Confirmed Type celecoxib [Celebrex] 200 mg PO DAILY 04/10/18 04/10/18 History fentanyl 1 patch TRANSDERMAL Q72H 04/10/18 04/10/18 History fluoxetine 40 mg PO DAILY 04/10/18 04/10/18 History lisinopril 40 mg PO DAILY 04/10/18 04/10/18 History loratadine 10 mg PO DAILY 04/10/18 04/10/18 History montelukast 10 mg PO QPM 04/10/18 04/10/18 History ondansetron HCl 4 mg PO DAILY PRN 04/10/18 04/10/18 History topiramate [Topamax] 15 mg PO DAILY 04/10/18 04/10/18 History Exam Vital signs: Vital Signs 04/10/18 14:28 04/10/18 14:49 04/10/18 16:30 Temperature 98.1 F Pulse Rate 93 H 93 H 81 Respiratory Rate 16 18 Blood Pressure 106/61 89/51 L Pulse Oximetry 98 99 97 04/10/18 16:46 04/10/18 18:00 04/10/18 19:00 Temperature 98.3 F 97.9 F 97.9 F Pulse Rate 71 81 81 Respiratory Rate 17 18 18 Blood Pressure 152/77 H 102/61 102/65 Pulse Oximetry 96 98 Intake & Output 04/10/18 04/10/18 04/11/18 06:59 18:59 06:59 Output Total 400 / 400 Balance -400 / -400 Weight 95.148 kg Output: Urine 400 / 400 Other: # Voids 1 Narrative: PE: GENERAL: Very pleasant middle-aged white female in no acute distress. HEENT: PERRLA, EOMI. No scleral icterus or conjunctival pallor. No lid lag or facial droop. CARDIOVASCULAR: Regular rate and rhythm. No obvious murmurs to auscultation. No chest tenderness to palpation. RESPIRATORY: No obvious rhonchi or wheezing. Clear to auscultation. Breath sounds equal bilaterally. GASTROINTESTINAL: Abdomen soft, non-tender, nondistended. BS normal. MUSCULOSKELETAL: Extremities without clubbing, cyanosis, or edema. No obvious deformities. RLE w/ erythema/edema, tenderness to palpation. NEUROLOGICAL: Awake, alert and oriented x4. No focal neurologic deficits. Moving both upper and lower extremities spontaneously. Results - Labs CBC & Chem 7: 04/10/18 14:45 04/10/18 14:45 Labs: Short CBC 04/10/18 Range/Units 14:45 WBC 18.7 H (4.0-11.0) th/mm3 Hgb 12.6 (11.6-15.3) gm/dL Hct 38.9 (35.0-46.0) % Plt Count 104 L (150-450) th/mm3 BMP 04/10/18 14:45 Sodium 139 Potassium 4.3 Chloride 107 Carbon Dioxide 22.1 BUN 22 H Creatinine 1.38 H Calcium 9.1 Liver Function 04/10/18 Range/Units 14:45 Total Bilirubin 0.3 (0.2-1.0) mg/dL AST 8 L (15-37) U/L ALT 17 (10-53) U/L Alkaline Phosphatase 110 (45-117) U/L Albumin 3.9 (3.4-5.0) g/dL - Imaging Impressions Chest X-Ray 04/10/18 14:49 CONCLUSION: No acute cardiopulmonary abnormality is identified. Venous Doppler Study 04/10/18 15:20 CONCLUSION: 1. Extensive DVT. Chest CTA 04/10/18 15:56 CONCLUSION: Unremarkable study except for mild scoliosis . Caprini VTE Risk Assessment Caprini VTE Risk Assessment: Moderate/High Risk (score >= 2) Caprini Risk Assessment Model: Point Value = 1 Point Value = 2 Point Value = 3 Point Value = 5 Age 41-60 Minor surgery BMI > 25 kg/m2 Swollen legs Varicose veins or History of unexplained or recurrent spontaneous Oral contraceptives or hormone replacement Sepsis (< 1 month) Serious lung disease, including pneumonia (< 1 month) Abnormal pulmonary function Acute myocardial infarction Congestive heart failure (< 1 month) History of inflammatory bowel disease Medical patient at bed rest Age 61-74 Arthroscopic surgery Major open surgery (> 45 min) Laparoscopic surgery (> 45 min) Malignancy Confined to bed (> 72 hours) Immobilizing plaster cast Central venous access Age >= 75 History of VTE Family history of VTE Factor V Leiden Prothrombin [id number] Lupus anticoagulant Anticardiolipin antibodies Elevated serum homocysteine Heparin-induced thrombocytopenia Other congenital or acquired thrombophilia Stroke (< 1 month) Elective arthroplasty Hip, pelvis, or leg fracture Acute spinal cord injury (< 1 month) Prophylaxis Regimen: Total Risk Factor Score Risk Level Prophylaxis Regimen 0-1 Low Early ambulation 2 Moderate Order ONE of the following: *Sequential Compression Device (SCD) *Heparin 5000 units SQ BID 3-4 Higher Order ONE of the following medications: *Heparin 5000 units SQ TID *Enoxaparin/Lovenox 40 mg SQ daily (WT < 150 kg, CrCl > 30 mL/min) *Enoxaparin/Lovenox 30 mg SQ daily (WT < 150 kg, CrCl > 10-29 mL/min) *Enoxaparin/Lovenox 30 mg SQ BID (WT < 150 kg, CrCl > 30 mL/min) AND/OR *Sequential Compression Device (SCD) 5 or more Highest Order ONE of the following medications: *Heparin 5000 units SQ TID (Preferred with Epidurals) *Enoxaparin/Lovenox 40 mg SQ daily (WT < 150 kg, CrCl > 30 mL/min) *Enoxaparin/Lovenox 30 mg SQ daily (WT < 150 kg, CrCl > 10-29 mL/min) *Enoxaparin/Lovenox 30 mg SQ BID (WT < 150 kg, CrCl > 30 mL/min) AND *Sequential Compression Device (SCD) Assessment and Plan - Assessment (1) DVT (deep venous thrombosis) Code(s): I82.409 - Acute embolism and thrombosis of unspecified deep veins of unspecified lower extremity Status: Acute (2) KRISTY (acute kidney injury) Code(s): N17.9 - Acute kidney failure, unspecified Status: Acute (3) Ovarian ca Code(s): C56.9 - Malignant neoplasm of unspecified ovary Status: Acute (4) Leukocytosis Code(s): D72.829 - Elevated white blood cell count, unspecified Status: Acute - Plan A/P: 1. RLE DVT: acute onset erythema/edema x2 days, RLE Doppler w/ extensive DVT, images reviewed. CTA Pulm negative for PE. Currently on Heparin gtt, will continue, start Coumadin in am, recheck INR. Analgesics as needed. 2. Leukocytosis: WBC 18, Afebrile, CXR/CT w/ no evidence of infection, likely due to DVT, hold antibiotics for now, repeat labs in am. 3. KRISTY: Creatinine 1.38, previously normal 12/26/17, Check U/a, IVF for hydration, repeat labs in am. 4. Ovarian CA: Follows w/ Dr. Lynch, currently under treatment, will consult for further evaluation given acute DVT w/ need for anticoagulation. 5. DVT Prophylaxis: On treatment for acute DVT 6. Social work for d/c planning as needed. 7. Case discussed w/ day physician at length, labs/records/imaging reviewed by me (1) DVT (deep venous thrombosis) Qualifiers: DVT location: lower extremity Affected thrombotic vein of extremity: unspecified lower extremity distal vein Chronicity: acute Laterality: right Qualified Code(s): I82.4Z1 - Acute embolism and thrombosis of unspecified deep veins of right distal lower extremity
[2018-04-10] MEDS: Senna/Docusate Sodium 8.6/50 MG Tablet PO SCH (21:34)
[2018-04-10] MEDS: Sod Chloride 0.9% Inj 1,000 ML IV.CONT SCH (21:34)
[2018-04-10] MEDS: Heparin Drip 25,000 UNIT/250 ML BAG IV.CONT PRN (23:13)
[2018-04-11 00:45] LABS: INR 1.1 Ratio; Prothrombin Time 11.1 sec (9.8-11.6)
[2018-04-11] MEDS: Methocarbamol 500 MG Tablet PO SCH ×3 (06:52→20:17)
[2018-04-11 07:59] LABS: Baso % (Auto) 0.2 % (0.0-2.0); Eos % (Auto) 0.2 % (0.0-4.0); Hematocrit 31.9 % (35.0-46.0); Hemoglobin 10.6 gm/dL (11.6-15.3); Lymph # (Auto) 2.1 th/mm3 (1.0-4.8); Lymph % (Auto) 18.7 % (9.0-44.0); Mean Corpuscular HGB Conc 33.2 % (32.0-36.0); Mean Corpuscular Hemoglobin 29.5 pg (27.0-34.0); Mean Corpuscular Volume 88.9 fL (80.0-100.0); Mean Platelet Volume 7.7 fL (7.0-11.0); Mono # (Auto) 0.7 th/mm3 (0.0-0.9); Mono % (Auto) 5.8 % (0.0-8.0); Neut # (Auto) 8.6 th/mm3 (1.8-7.7); Neut % (Auto) 75.1 % (16.0-70.0); Platelet Count 76 th/mm3 (150-450); Red Blood Count 3.59 mil/mm3 (4.00-5.30); Red Cell Distribution Width 20.1 % (11.6-17.2); White Blood Count 11.5 th/mm3 (4.0-11.0)
[2018-04-11 08:11] LABS: INR 1.1 Ratio; Prothrombin Time 10.7 sec (9.8-11.6)
[2018-04-11 08:29] LABS: Alanine Aminotransferase 14 U/L (10-53); Albumin 3.2 g/dL (3.4-5.0); Alkaline Phosphatase 94 U/L (45-117); Anion Gap 11 meq/L (5-15); Aspartate Aminotransferase 9 U/L (15-37); Blood Urea Nitrogen 21 mg/dL (7-18); Calcium 8.8 mg/dL (8.5-10.1); Carbon Dioxide 22.5 meq/L (21.0-32.0); Chloride 108 meq/L (98-107); Glomerular Filtration Rate 59 mL/min (>89); Glucose,Random 108 mg/dL (74-106); Potassium 4.3 meq/L (3.5-5.1); Sodium 141 meq/L (136-145); Total Protein 6.5 g/dL (6.4-8.2)
[2018-04-11] MEDS: Lisinopril 20 MG Tablet PO SCH (08:39)
[2018-04-11] MEDS: Loratadine 10 MG Tablet PO SCH (08:39)
[2018-04-11] MEDS: Celecoxib 200 MG Capsule PO SCH (08:39)
[2018-04-11] MEDS: Senna/Docusate Sodium 8.6/50 MG Tablet PO SCH ×2 (08:40→20:00)
[2018-04-11] MEDS: FLUoxetine 20 MG Capsule PO SCH (08:40)
[2018-04-11] MEDS: TOPIRAMATE 15 MG PO SCH (08:42)
[2018-04-11 10:48] LABS: Ovalocytes 1+
[2018-04-11 10:49] LABS: Platelet Morphology Normal (Normal); Toxic Granulation 2+
[2018-04-11 10:51] LABS: Bilirubin,Urine Negative (Negative); Clarity,Urine Clear (Clear); Color,Urine Yellow (Yellw/Straw); Glucose,Urine (UA) Negative (Negative); Hyaline Casts,Urine 9 /lpf (0-3); Leukocyte Esterase,Urine Negative (Negative); Mucus,Urine Few /lpf (Occasional); Nitrite,Urine Negative (Negative); Specific Gravity,Urine 1.027 (1.002-1.035); Squamous Epithelial Cell,Urine <1 /hpf (0-5)
--- NOTE | 2018-04-11 10:53 | P.PNIM ---
Subjective Interval history: Patient reports she is feeling okay except for right leg pain with walking. Physical Exam Vital signs: Vital Signs 04/10/18 14:28 04/10/18 14:49 04/10/18 16:30 Temperature 98.1 F Pulse Rate 93 H 93 H 81 Respiratory Rate 16 18 Blood Pressure 106/61 89/51 L Pulse Oximetry 98 99 97 04/10/18 16:46 04/10/18 18:00 04/10/18 19:00 Temperature 98.3 F 97.9 F 97.9 F Pulse Rate 71 81 81 Respiratory Rate 17 18 18 Blood Pressure 152/77 H 102/61 102/65 Pulse Oximetry 96 98 04/10/18 20:05 04/10/18 21:08 04/11/18 00:00 Temperature 97.2 F L 98.2 F 98.4 F Pulse Rate 82 76 84 Respiratory Rate 18 18 20 Blood Pressure 137/64 128/83 125/59 L Pulse Oximetry 94 L 97 96 04/11/18 08:00 Temperature 98.4 F Pulse Rate 75 Respiratory Rate 20 Blood Pressure 120/58 L Pulse Oximetry 96 Intake & Output 04/10/18 04/11/18 04/11/18 18:59 06:59 18:59 Intake Total 1400 / 1400 Output Total 400 / 400 Balance -400 / -400 1400 / 1400 Weight 95.148 kg 95 kg Intake: IV 1000 / 1000 NS Inj 1,000 ML @ 100 mls/hr IV 1000 / 1000 .CONT .Q10H MAGI Rx#:[id number] Oral 400 / 400 Output: Urine 400 / 400 Other: # Voids 1 1 Date of Last Bowel Movement 04/08/18 Weight On Admission 95.14 kg Narrative: GENERAL: This is a well-nourished, well-developed patient, in no apparent distress. CARDIOVASCULAR: Normal rate and regular rhythm without murmurs, gallops, or rubs. RESPIRATORY: Good respiratory efforts. Breath sounds equal and clear to auscultation bilaterally. GASTROINTESTINAL: Abdomen soft, non-tender, non-distended. Normal active bowel sounds MUSCULOSKELETAL: Right lower extremity with 2 + non pitting edema. NEURO: Alert & Oriented x4 to person, place, time, situation. Moves all ext x4 PSYCH: Appropriate mood and affect. Results - Labs CBC & Chem 7: 04/11/18 07:22 04/11/18 07:22 Laboratory Results - last 24 hr 04/10/18 04/10/18 04/10/18 14:45 14:45 14:45 WBC 18.7 H RBC 4.31 Hgb 12.6 Hct 38.9 MCV 90.2 MCH 29.2 MCHC 32.4 RDW 20.8 H Plt Count 104 L MPV 8.1 Prelim Diff (Auto) Neut % (Auto) 88.9 H Lymph % (Auto) 7.1 L Spink % (Auto) 3.8 Eos % (Auto) 0.1 Baso % (Auto) 0.1 Neut # (Auto) 16.6 H Lymph # (Auto) 1.3 Spink # (Auto) 0.7 Eos # (Auto) 0.0 Baso # (Auto) 0.0 WBC Differential . Differential Comment Auto diff final PT 10.4 INR 1.0 APTT 22.5 L Sodium 139 Potassium 4.3 Chloride 107 Carbon Dioxide 22.1 Anion Gap 10 BUN 22 H Creatinine 1.38 H Estimated GFR 38 L Random Glucose 109 H Calcium 9.1 Total Bilirubin 0.3 AST 8 L ALT 17 Alkaline Phosphatase 110 Total Protein 7.2 Albumin 3.9 04/10/18 04/11/18 04/11/18 23:57 01:43 07:22 WBC 11.5 H RBC 3.59 L Hgb 10.6 L D Hct 31.9 L MCV 88.9 MCH 29.5 MCHC 33.2 RDW 20.1 H Plt Count 76 L MPV 7.7 Prelim Diff (Auto) Slide review pending Neut % (Auto) 75.1 H Lymph % (Auto) 18.7 Spink % (Auto) 5.8 Eos % (Auto) 0.2 Baso % (Auto) 0.2 Neut # (Auto) 8.6 H Lymph # (Auto) 2.1 Spink # (Auto) 0.7 Eos # (Auto) 0.0 Baso # (Auto) 0.0 WBC Differential Differential Comment . PT 11.1 INR 1.1 APTT 134.0 H* D 80.1 H D Sodium Potassium Chloride Carbon Dioxide Anion Gap BUN Creatinine Estimated GFR Random Glucose Calcium Total Bilirubin AST ALT Alkaline Phosphatase Total Protein Albumin 04/11/18 04/11/18 07:22 07:22 WBC RBC Hgb Hct MCV MCH MCHC RDW Plt Count MPV Prelim Diff (Auto) Neut % (Auto) Lymph % (Auto) Spink % (Auto) Eos % (Auto) Baso % (Auto) Neut # (Auto) Lymph # (Auto) Spink # (Auto) Eos # (Auto) Baso # (Auto) WBC Differential Differential Comment PT 10.7 INR 1.1 APTT Sodium 141 Potassium 4.3 Chloride 108 H Carbon Dioxide 22.5 Anion Gap 11 BUN 21 H Creatinine 0.96 Estimated GFR 59 L Random Glucose 108 H Calcium 8.8 Total Bilirubin 0.4 AST 9 L ALT 14 Alkaline Phosphatase 94 Total Protein 6.5 D Albumin 3.2 L D - Imaging Impressions Chest X-Ray 04/10/18 14:49 CONCLUSION: No acute cardiopulmonary abnormality is identified. Venous Doppler Study 04/10/18 15:20 CONCLUSION: 1. Extensive DVT. Chest CTA 04/10/18 15:56 CONCLUSION: Unremarkable study except for mild scoliosis . Assessment and Plan - Assessment (1) DVT (deep venous thrombosis) Code(s): I82.409 - Acute embolism and thrombosis of unspecified deep veins of unspecified lower extremity Status: Acute (2) KRISTY (acute kidney injury) Code(s): N17.9 - Acute kidney failure, unspecified Status: Acute (3) Ovarian ca Code(s): C56.9 - Malignant neoplasm of unspecified ovary Status: Acute (4) Leukocytosis Code(s): D72.829 - Elevated white blood cell count, unspecified Status: Acute - Plan 63-year-old female with ovarian cancer undergoing chemotherapy who presented with right lower extremity DVT. RLE DVT: RLE Doppler w/ extensive DVT, images reviewed. CTA Pulm negative for PE. Currently on Heparin gtt, will defer to hematology/oncology for long-term anticoagulant options. Briefly discussed Lovenox versus Edoxaban with the patient. Ovarian CA: Follows w/ Dr. Lynch, currently on chemotherapy. -Oncology consulted. Anemia/thrombocytopenia: ?Chemo related - Monitor closely Leukocytosis: WBC 18 on presentation, Afebrile, CXR/CT w/ no evidence of infection, likely due to DVT, hold antibiotics for now -Improving. KRISTY: Creatinine 1.38, previously normal 12/26/17. -Resolved with IV fluid. Discharge Planning: Possible discharge in 24-48 hours depending on anticoagulant option. (1) DVT (deep venous thrombosis) Qualifiers: DVT location: lower extremity Affected thrombotic vein of extremity: unspecified lower extremity distal vein Chronicity: acute Laterality: right Qualified Code(s): I82.4Z1 - Acute embolism and thrombosis of unspecified deep veins of right distal lower extremity
[2018-04-11] MEDS: ALBUTEROL 4 MG PO SCH (12:13)
[2018-04-11] MEDS: Sod Chloride 0.9% Inj 1,000 ML IV.CONT SCH ×2 (12:15→19:08)
--- NOTE | 2018-04-11 16:10 | ECG ---
Date Performed: 04/10/2018 Time Performed: 15:10:32 PTAGE: 63 years EKG: Sinus rhythm BORDERLINE LEFT AXIS DEVIATION BORDERLINE ECG NO PREVIOUS TRACING DOCTOR: Cecil Ramirez Interpretating Date/Time 04/11/2018 16:08:53
[2018-04-11] MEDS ORDERED: Montelukast 10 MG Tablet PO SCH (18:00)
[2018-04-11] MEDS: Heparin Drip 25,000 UNIT/250 ML BAG IV.CONT PRN (19:50)
--- NOTE | 2018-04-12 03:09 | P.CON ---
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 She is currently receiving systemic chemotherapy. She is under the care of Dr. Lynch. She is receiving Taxol 175 mg/m and carboplatin AUC of 6 every 21 days. Patient was diagnosed with this malignancy in December 2017. She underwent exploratory laparotomy with resection of the pelvic mass. Pathology revealed endometriosis with elements of borderline tumor that can typically arise from ovarian tissue. 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 Patient has a history of hysterectomy and bilateral salpingo-oophorectomy with severe endometriosis. Based on the pathology and clinical findings during surgery, a primary originating from the endometrium versus ovarian versus peritoneum was suspected. The patient now presents to the emergency room with right lower extremity swelling which began approximately 2 days ago. She has been experiencing significant amount of pain and difficulty ambulating. She does not have any previous history of DVT or pulmonary embolism. In the emergency department a Doppler ultrasound of the right lower extremity was seen which showed extensive DVT. A CT angiogram of the chest was also obtained which did not reveal any pulmonary embolism. The patient was started on heparin GTT. this DVT has occurred in the setting of underlying malignancy. Review of Systems All other systems reviewed negative except as stated in HPI PMFSH - History History Provided By: Patient - Medical History Medical History: Medical History (Last Reviewed 04/12/18 @ 15:05 by Hollis Byrne MD) Anxiety Asthma Endometrial cancer HBP (high blood pressure) History of hysterectomy Melanoma - Surgical History Surgical History: Surgical History (Last Reviewed 04/12/18 @ 15:05 by Hollis Byrne MD) History of back surgery History of knee replacement Hx of cholecystectomy Hx of tonsillectomy - Family History Family History: Family History (Last Updated 04/12/18 @ 15:07 by Hollis Byrne MD) Other Family history of colon cancer - Tobacco History Second Hand Smoke Exposure: No Tobacco Use In Past 30 Days: No Smoking Status: Never smoker - Alcohol History How Often Do You Have a Drink Containing Alcohol: Never - Substance Use History Substance History: No History of Abuse - Travel History Recent Travel in the [place] Within the Last 8 Weeks: No - Immunization History Tetanus Immunization: >5 Years Hx Influenza Vaccine This Season: Yes Medications and Allergies Active Medications: Active Medications Acetaminophen (Tylenol) 650 mg PO Q4H PRN PRN Reason: Temp > 100.4 Al Hydroxide/Mg Hydroxide (Milk Of Magnesia Liq) 30 ml PO Q12H PRN PRN Reason: Mild Constipation Albuterol (Proventil Er) 12 mg PO DAILY [facility] Last Admin: 04/11/18 12:13 Dose: 12 mg Bisacodyl (Dulcolax Supp) 10 mg RECTAL DAILY PRN PRN Reason: SEVERE CONSITIPATION Bisacodyl (Dulcolax Ec) 10 mg PO DAILY PRN PRN Reason: Constipation Celecoxib (Celebrex) 200 mg PO DAILY [facility] Last Admin: 04/11/18 08:39 Dose: 200 mg Fentanyl (Duragesic 75 Mcg Patch.72hr) 1 patch T-DERMAL Q72H [facility] Last Admin: 04/10/18 23:11 Dose: 1 patch Fluoxetine HCl (Prozac) 40 mg PO DAILY [facility] Last Admin: 04/11/18 08:40 Dose: 40 mg Heparin Sodium/Dextrose (Heparin/D5w 25,000 U/250 Ml) 25,000 unit in 250 mls @ 17 mls/hr IV.CONT TITRATE PRN; Protocol PRN Reason: Per Protocol Last Admin: 04/11/18 19:50 Dose: 1,300 units/hr, 13 mls/hr Sodium Chloride (Ns Inj) 1,000 mls @ 100 mls/hr IV.CONT .Q10H [facility] Last Admin: 04/11/18 19:08 Dose: Not Given Lactulose (Lactulose Liq) 30 ml PO DAILY PRN PRN Reason: SEVERE CONSITIPATION Lisinopril (Prinivil) 40 mg PO DAILY [facility] Last Admin: 04/11/18 08:39 Dose: Not Given Loratadine (Claritin) 10 mg PO DAILY [facility] Last Admin: 04/11/18 08:39 Dose: 10 mg Methocarbamol (Robaxin) 1,500 mg PO HS [facility] Last Admin: 04/11/18 20:17 Dose: 1,500 mg Montelukast Sodium (Singulair) 10 mg PO QPM [facility] Last Admin: 04/11/18 19:12 Dose: 10 mg Ondansetron HCl (Zofran Odt) 8 mg PO Q8H PRN PRN Reason: NAUSEA/VOMITING Oxycodone HCl (Roxicodone) 5 mg PO Q4H PRN PRN Reason: pain 3-10 Pt Own Topamax 15 Mg 0 each PO DAILY [facility] Last Admin: 04/11/18 08:42 Dose: Not Given Senna/Docusate Sodium (Kavita-Colace) 1 tab PO BID [facility] Last Admin: 04/11/18 20:00 Dose: 1 tab Sennosides (Senokot) 17.2 mg PO Q12H PRN PRN Reason: Moderate Constipation Temazepam (Restoril) 15 mg PO HS PRN PRN Reason: INSOMNIA Allergies Allergy/AdvReac Type Severity Reaction Status Date / Time Sulfa (Sulfonamide Allergy Severe Swelling Verified 04/10/18 14:22 Antibiotics) oxycodone AdvReac Vomiting Verified 04/10/18 23:36 Home Medications Medication Instructions Recorded Confirmed Type albuterol sulfate 12 mg PO DAILY 04/10/18 04/10/18 History bisacodyl [Dulcolax (bisacodyl)] 10 mg PO DAILY PRN 04/10/18 04/10/18 History celecoxib [Celebrex] 200 mg PO DAILY 04/10/18 04/10/18 History fentanyl 1 patch TRANSDERMAL 04/10/18 History fluoxetine 40 mg PO DAILY 04/10/18 04/10/18 History lisinopril 40 mg PO DAILY 04/10/18 04/10/18 History loratadine 10 mg PO DAILY 04/10/18 04/10/18 History methocarbamol 3 tab PO HS 04/10/18 04/10/18 History montelukast 10 mg PO QPM 04/10/18 04/10/18 History ondansetron HCl 8 mg PO DAILY PRN 04/10/18 04/10/18 History topiramate [Topamax] 75 mg PO HS 04/10/18 04/10/18 History Physical Exam Vital signs: Vital Signs 04/11/18 08:00 04/11/18 09:00 04/11/18 12:00 Temperature 98.4 F 98.6 F Pulse Rate 75 66 71 Respiratory Rate 20 20 Blood Pressure 120/58 L 129/66 Pulse Oximetry 96 96 04/11/18 16:00 04/11/18 20:00 04/12/18 00:00 Temperature 98.6 F 97.5 F L 98.1 F Pulse Rate 74 73 73 Respiratory Rate 18 20 20 Blood Pressure 128/60 134/68 139/62 Pulse Oximetry 97 97 96 Intake & Output 04/11/18 04/11/18 04/12/18 06:59 18:59 06:59 Intake Total 1400 / 1400 1979 250 / 250 Balance 1400 / 1400 1979 250 / 250 Weight 95 kg Intake: IV 1000 / 1000 250 / 250 Heparin/D5W 25,000 U/250 mL 25, 250 / 250 000 unit In 250 ml @ Per Protocol 17 mls/hr IV.CONT TITRATE PRN Rx#:[id number] NS Inj 1,000 ML @ 100 mls/hr IV 1000 / 1000 .CONT .Q10H MAGI Rx#:[id number] Oral 400 / 400 1979 Other: # Voids 1 3 Date of Last Bowel Movement 04/08/18 04/08/18 # Bowel Movements 0 Weight On Admission 95.14 kg - Constitutional no acute distress - Routine HEENT Exam Head: Present: normocephalic, atraumatic - Routine Neck Exam Present: supple - Routine Respiratory Exam Present: CTA bilaterally - Routine Cardiovascular Exam Present: RRR, S1, S2 - Routine Abdominal Exam Present: soft, normoactive bowel sounds - Routine Extremities Exam Present: cyanosis, pulses intact, normal capillary refill Comments: RLE swelling/tense/tender/m - Routine Skin Exam Present: intact, dry, warm - Routine Neurological Exam Present: alert, oriented X3, CN II-XII intact - Routine Psychiatric Exam Present: normal affect Assessment and Plan - Assessment (1) DVT (deep venous thrombosis) Code(s): I82.409 - Acute embolism and thrombosis of unspecified deep veins of unspecified lower extremity Status: Acute (2) Ovarian ca Code(s): C56.9 - Malignant neoplasm of unspecified ovary Status: Acute (3) Leukocytosis Code(s): D72.829 - Elevated white blood cell count, unspecified Status: Acute (4) KRISTY (acute kidney injury) Code(s): N17.9 - Acute kidney failure, unspecified Status: Acute - Plan This is a 62-year-old female who has a 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 She is currently receiving systemic chemotherapy. She presents to the emergency department with 2-3 day history of right lower extremity: #1 acute DVT in the setting of malignancy She has extensive DVT in the right lower extremity. There is no evidence of pulmonary embolism based on the CT angiogram. She does not have any shortness of breath, no hemoptysis noted, no chest pain. She is currently on heparin GTT. I would transition her to Lovenox 80 mg subcu twice daily. I had a long discussion with her. I explained to her that Lovenox is the preferred agent of choice in patients with underlying malignancy. She will need indefinite anticoagulation. She is agreeable to this treatment modality. We will provide her instructions to self inject Lovenox. If she symptomatically continues to improve then she can be discharged home with Lovenox. She will follow-up with Dr. Lynch in the outpatient setting. 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 -Further treatment will be in the outpatient setting. (1) DVT (deep venous thrombosis) Qualifiers: DVT location: lower extremity Affected thrombotic vein of extremity: unspecified lower extremity distal vein Chronicity: acute Laterality: right Qualified Code(s): I82.4Z1 - Acute embolism and thrombosis of unspecified deep veins of right distal lower extremity
[2018-04-12 08:34] VITALS: RESP 18
[2018-04-12] MEDS ORDERED: Enoxaparin Inj 80 MG/0.8 ML Syringe SQ SCH (09:00)
[2018-04-12] MEDS: Sod Chloride 0.9% Inj 1,000 ML IV.CONT SCH (09:47)
[2018-04-12] MEDS: Celecoxib 200 MG Capsule PO SCH (09:53)
[2018-04-12] MEDS: Lisinopril 20 MG Tablet PO SCH (09:54)
[2018-04-12] MEDS: FLUoxetine 20 MG Capsule PO SCH (09:54)
[2018-04-12] MEDS: Loratadine 10 MG Tablet PO SCH (09:54)
[2018-04-12 09:55] LABS: Hematocrit 32.6 % (35.0-46.0); Hemoglobin 10.8 gm/dL (11.6-15.3); Mean Corpuscular HGB Conc 33.1 % (32.0-36.0); Mean Corpuscular Hemoglobin 29.9 pg (27.0-34.0); Mean Corpuscular Volume 90.3 fL (80.0-100.0); Mean Platelet Volume 7.8 fL (7.0-11.0); Platelet Count 75 th/mm3 (150-450); Red Blood Count 3.61 mil/mm3 (4.00-5.30); Red Cell Distribution Width 20.9 % (11.6-17.2); White Blood Count 7.7 th/mm3 (4.0-11.0)
[2018-04-12] MEDS: Senna/Docusate Sodium 8.6/50 MG Tablet PO SCH (09:55)
[2018-04-12] MEDS: ALBUTEROL 4 MG PO SCH (09:58)
[2018-04-12] MEDS: TOPIRAMATE 15 MG PO SCH (09:59)
[2018-04-12 10:20] LABS: Calcium 8.8 mg/dL (8.5-10.1); Carbon Dioxide 24.1 meq/L (21.0-32.0); Potassium 4.2 meq/L (3.5-5.1)
--- NOTE | 2018-04-12 13:36 | P.DCO ---
- Diagnosis (2) DVT (deep venous thrombosis) - Physical Therapy Order: Improve ambulation, Strength and gait training - Home Health Nursing Order: Medical education, Signs/symptoms of disease process, Nursing assessment with vital signs - Certification I have seen patient Gabbie Bowers on 04/12/18. My clinical findings support the need for the requested home health care services because: Limited mobility due to disease progression, Injectable medication education/ administration I certify that my clinical findings support that this patient is homebound because: Unsteady gait/balance (2) DVT (deep venous thrombosis) Qualifiers: DVT location: lower extremity Affected thrombotic vein of extremity: unspecified lower extremity distal vein Chronicity: acute Laterality: right Qualified Code(s): I82.4Z1 - Acute embolism and thrombosis of unspecified deep veins of right distal lower extremity
--- NOTE | 2018-04-12 13:38 | P.DS ---
Date of admission: 04/10/18 17:50 Primary care physician: Nathan Sabillon Brief History from admission: HPI from the admitting physician: This is a 63-year-old female with a PMH of HTN, Ovarian CA and Chronic Pain was referred to the ER by her Oncologist, Dr. Burch for right lower extremity swelling. Pt notes RLE edema x2 days w/ associated tenderness. Pain is intermittent, moderate, 6/10, worse w/ ambulation/weight. No previous h/o DVT. Does note she fell approx 2 days ago and thinks this may be the cause. No head trauma or LOC reported. On arrival, BP 106/61, HR 93, O2 sat 98% on RA, Afebrile. WBC 18.7. INR 1.0. Creatinine 1.38, previously 0.95 on 12/26/2017. RLE Doppler with extensive DVT. CTA Pulmonary negative for PE. Currently on Heparin gtt. Update on the day of discharge 04/12/18: Patient reports right leg swelling is better. She still has difficulty walking and is requesting a wheelchair. She is eager to go home. Has been seen by hematology/oncology and transitioned to Lovenox. DS: Diagnosis - Discharge Diagnosis (1) Debility Status: Acute (2) DVT (deep venous thrombosis) Status: Acute (3) Ovarian ca Status: Acute (4) KRISTY (acute kidney injury) Status: Acute (5) Leukocytosis Status: Acute DS: Medications - Discharge Medications Prescriptions: enoxaparin [Lovenox] 80 mg SUB-Q Q12HR 30 Days ml DS: Summary Hospital Course: 63-year-old female with ovarian cancer undergoing chemotherapy who presented with right lower extremity DVT. Evaluation and treatment course detailed below: RLE DVT: RLE Doppler w/ extensive DVT, images reviewed. CTA Pulm negative for PE. Patient initially treated with heparin drip. Hematology/oncology consulted on the patient and she was transitioned to Lovenox. She is discharged on Lovenox to follow-up outpatient with hematology/oncology. Ovarian CA: Follows w/ Dr. Lynch, currently on chemotherapy. -Advised outpatient follow-up with Dr. Lynch. Anemia/thrombocytopenia: ?Chemo related -Remains stable. Follow-up outpatient with PCP and hematology. Leukocytosis: WBC 18 on presentation, Afebrile, CXR/CT w/ no evidence of infection, likely due to DVT -Leukocytosis resolved. KRISTY: Creatinine 1.38, previously normal 12/26/17. -Resolved with IV fluid. - Time Spent with Patient Total time spent providing and/or coordinating discharge services: - Quality: VTE Deep Vein Thrombosis/Pulmonary Embolism Present on Admission: Yes Exam Vital signs: Vital Signs 04/11/18 16:00 04/11/18 20:00 04/11/18 20:10 Temperature 98.6 F 97.5 F L Pulse Rate 74 73 97 H Respiratory Rate 18 20 Blood Pressure 128/60 134/68 Pulse Oximetry 97 97 04/12/18 00:00 04/12/18 04:00 04/12/18 04:10 Temperature 98.1 F 97.4 F L Pulse Rate 73 66 63 Respiratory Rate 20 20 Blood Pressure 139/62 128/66 Pulse Oximetry 96 97 04/12/18 08:00 Temperature 97.5 F L Pulse Rate 88 Respiratory Rate 18 Blood Pressure 147/79 H Pulse Oximetry 96 Intake & Output 04/11/18 04/12/18 04/12/18 18:59 06:59 18:59 Intake Total 1979 250 / 250 Balance 1979 250 / 250 Intake: IV 250 / 250 Heparin/D5W 25,000 U/250 mL 25, 250 / 250 000 unit In 250 ml @ Per Protocol 17 mls/hr IV.CONT TITRATE PRN Rx#:[id number] Oral 1979 Other: # Voids 3 1 Date of Last Bowel Movement 04/08/18 # Bowel Movements 0 Narrative: GENERAL: This is a well-nourished, well-developed patient, in no apparent distress. CARDIOVASCULAR: Normal rate and regular rhythm without murmurs, gallops, or rubs. RESPIRATORY: Good respiratory efforts. Breath sounds equal and clear to auscultation bilaterally. GASTROINTESTINAL: Abdomen soft, non-tender, non-distended. Normal active bowel sounds MUSCULOSKELETAL: Right lower extremity with 1 + non pitting edema. NEURO: Alert & Oriented x4 to person, place, time, situation. Moves all ext x4 PSYCH: Appropriate mood and affect. Results Procedures completed during hospitalization: None Labs on day of discharge: Labs from last 24 hours 04/12/18 04/12/18 04/11/18 08:09 08:09 20:44 WBC 7.7 RBC 3.61 L Hgb 10.8 L Hct 32.6 L MCV 90.3 MCH 29.9 MCHC 33.1 RDW 20.9 H Plt Count 75 L MPV 7.8 APTT 53.8 H Sodium 140 Potassium 4.2 Chloride 108 H Carbon Dioxide 24.1 Anion Gap 8 BUN 17 Creatinine 0.96 Estimated GFR 59 L Random Glucose 100 Calcium 8.8 - Impressions ITS Impressions Chest X-Ray 04/10/18 14:49 CONCLUSION: No acute cardiopulmonary abnormality is identified. Venous Doppler Study 04/10/18 15:20 CONCLUSION: 1. Extensive DVT. Chest CTA 04/10/18 15:56 CONCLUSION: Unremarkable study except for mild scoliosis . Discharge Plan - Discharge Disposition Patient Disposition: /Home Health Service - Discharge Condition Condition: Stable - Discharge Order Discharge Orders: Discharge Order (Routine); Ordered 04/12/18 Ordered By: William Galvan - Physicians Team Primary Care Provider: Nathan Sabillon Attending Provider: William Galvan Other Providers: Hollis Byrne MD ; [employer]
[2018-04-12 13:54] VITALS: BP 112/67; PULSE 81; TEMP 97.9; O2SAT 98
== END 2018-04-12 16:23 | disposition home health service (06) ==
LOC: NEPC 14:16 → NEDA 17:50 → N06 19:27
PROVIDERS: ADMIT Family Medicine; ATTEND Family Medicine
DX: F41.9 Anxiety disorder, unspecified; N17.9 Acute kidney failure, unspecified; T45.1X5A Adverse effect of antineoplastic and immunosuppressive drugs, initial encounter; Z88.2 Allergy status to sulfonamides; J45.909 Unspecified asthma, uncomplicated; N80.9 Endometriosis, unspecified; Z79.899 Other long term (current) drug therapy; I10 Essential (primary) hypertension; M79.89 Other specified soft tissue disorders; Z90.49 Acquired absence of other specified parts of digestive tract; E11.42 Type 2 diabetes mellitus with diabetic polyneuropathy; Z96.659 Presence of unspecified artificial knee joint; D72.829 Elevated white blood cell count, unspecified; C56.9 Malignant neoplasm of unspecified ovary; I95.9 Hypotension, unspecified; D69.59 Other secondary thrombocytopenia; Z90.710 Acquired absence of both cervix and uterus; R26.2 Difficulty in walking, not elsewhere classified; I82.401 Acute embolism and thrombosis of unspecified deep veins of right lower extremity